=== PATIENT | male | born 1995 | race African-American/Black ===

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

== ENCOUNTER 2017-02-24 14:40 | Emergency (ER) | payer OTHER ==
[~2017-02-24] VITALS: Ht 175.3 cm; Wt 66.0 kg
[2017-02-24 14:40] VITALS: BP 114/73; PULSE 79; RESP 18; TEMP 98.4; O2SAT 100
[~2017-02-24 14:40] MED LIST: CEPH-460 PO
--- NOTE | 2017-02-24 14:46 | PD ---
Physical Exam Time Seen by Provider: 14:44 Narrative 21yo c/o abd pain for a couple of months; on and off. Denies N, V, D, Fevers. Hx appendectomy. Patient seen in triage. VS reviewed. Awaiting bed placement. Data Data Last Documented VS Vital Signs Date Time Temp Pulse Resp B/P Pulse Ox O2 Delivery O2 Flow Rate FiO2 02/24/17 14:40 98.4 79 18 114/73 100 Room Air MDM Supervised Visit with ADAM: Saundra Dominique Feb 24, 2017 14:46
--- NOTE | 2017-02-24 15:47 | PD ---
HPI Chief Complaint: Abdominal Pain Time Seen by Provider: 15:35 Travel History International Travel<30 days: No Contact w/Intl Traveler<30days: No Traveled to known affect area: No History of Present Illness HPI He complains of some intermittent abdominal cramping for 2 months. He is able to eat without difficulty. He feels constipated. Location of discomfort is periumbilical. He has had an appendectomy. Denies fever or vomiting or diarrhea or rectal bleeding. No alleviating factors. PFSH Social History Tobacco Use: No Allergies-Medications (Allergen,Severity, Reaction): Coded Allergies: No Known Allergies (Unverified , 09/09/16) Reported Meds & Prescriptions Reported Meds & Active Scripts Active Keflex (Cephalexin) 500 Mg Cap 500 Mg PO Q8H 10 Days Review of Systems General / Constitutional: No: Fever HENT: No: Headaches Cardiovascular: No: Chest Pain or Discomfort Respiratory: No: Cough Physical Exam Narrative GENERAL: Well-nourished, well-developed patient in no apparent distress. SKIN: Focused skin assessment reveals no rash and nodules. Skin is Warm and dry. HEAD: Atraumatic. Normocephalic. EYES: Pupils equal and round. No scleral icterus. No injection or drainage. ENT: No nasal bleeding or discharge. Mucous membranes pink and moist. NECK: Trachea midline. No JVD. CARDIOVASCULAR: Regular rate and rhythm. No murmur appreciated. RESPIRATORY: No accessory muscle use. Clear to auscultation. Breath sounds equal bilaterally. GASTROINTESTINAL: Abdomen soft, non-tender, nondistended. Hepatic and splenic margins not palpable. MUSCULOSKELETAL: No obvious deformities. No clubbing. No cyanosis. No edema. NEUROLOGICAL: Awake and alert. No obvious cranial nerve deficits. Motor grossly within normal limits. Normal speech. PSYCHIATRIC: Appropriate mood and affect; insight and judgment normal. Data Data Last Documented VS Vital Signs Date Time Temp Pulse Resp B/P Pulse Ox O2 Delivery O2 Flow Rate FiO2 02/24/17 14:40 98.4 79 18 114/73 100 Room Air Orders Abdomen, Flat & Upright (02/24/17 ) [facility] Medical Decision Making Medical Screen Exam Complete: Yes Emergency Medical Condition: Yes Medical Record Reviewed: Yes Differential Diagnosis Irritable bowel syndrome, ileus, constipation Narrative Course I have reviewed the patient's electronic medical record. Patient's abdomen is soft and benign and nontender I reviewed his flat and upright abdomen x-rays and noted the radiologist's interpretation. There is mention of some scattered air-fluid levels but they' re quite minimal and ill-defined. Vital signs are normal This has been going on for a few months and I have no clinical suspicion of emergent intra-abdominal process Patient's had constipation issues for months. I do not suspect mechanical obstruction. Patient is sound asleep in the bed when I reevaluate him. I literally have to wake him up to discharge him. I suggested that he take 2 doses of magnesium citrate and a maintenance daily fiber therapy. The patient was advised to follow up with their physician and return if they worsen. Diagnosis Primary Impression: Abdominal cramping Additional Impression: Constipation Qualified Code: K59.00 - Constipation, unspecified constipation type Additional Instructions: Take a dose of magnesium citrate which is [id number]. Repeat in 6 hours if no results Take daily fiber therapy The patient was advised to follow up with their physician and return if they worsen. Med/Other Pt SpecificInfo: Other Disposition: 01 DISCHARGE HOME Condition: Stable Papo Dobbins MD Feb 24, 2017 15:47
--- NOTE | 2017-02-24 16:00 | RADRPT ---
EXAM DATE/TIME: 02/24/2017 15:52 [facility] COMPARISON: No previous studies available for comparison. INDICATIONS : Abdomen pain MEDICAL HISTORY : None. SURGICAL HISTORY : None. ENCOUNTER: Initial ACUITY: 4 - 6 days PAIN SCORE: 7/10 LOCATION: Bilateral Abdomen FINDINGS: Scattered air-fluid levels are present in the stomach, large and small bowel without dilatation. The re is no free air. 2 calcifications are seen in the right lower quadrant could be phlebolith. CT sc an may be of benefit. CONCLUSION: Abnormal calcifications described above. Arjun Mcduffie MD FACR on February 24, 2017 at 15:57 Board Certified Radiologist. This report was verified electronically.
== END 2017-02-24 17:06 | disposition home or self-care (01) ==
LOC: NEPD 14:40
DX: R10.33 Periumbilical pain (principal); K59.00 Constipation, unspecified
CPT/HCPCS: 74020; 99283

== ENCOUNTER 2017-07-24 16:00 | Emergency (ER) | payer OTHER | END 2017-07-24 17:54 | disposition left against medical advice (07) | LOC: NED 17:54 | DX: K59.00 Constipation, unspecified (principal); R10.9 Unspecified abdominal pain | CPT/HCPCS: 99281 ==